=== PATIENT | female | born 1960 ===

== ENCOUNTER 2017-05-04 10:34 | Day surgery (SDC) | payer MEDICAID ==
[2017-05-04 10:49] VITALS: BMI 30.2
[2017-05-04] MEDS ORDERED: Lactated Ringer's 500 ML IV ONE (10:52)
[2017-05-04] MEDS ORDERED: Propofol 10 mg/ml Inj (20 ML) ONE (11:49)
[2017-05-04] MEDS ORDERED: Lidocaine 2% MPF (5 ml) Inj ONE (11:50)
[2017-05-04 12:09] VITALS: TEMP 96.8
[2017-05-04 12:14] VITALS: BP 117/58; PULSE 54; RESP 18; O2SAT 99
== END 2017-05-04 13:56 | disposition home or self-care (01) ==
LOC: H.ENDO 10:34
PROVIDERS: ATTEND Internal Medicine Gastroenterology
DX: R10.13 Epigastric pain (principal); J45.909 Unspecified asthma, uncomplicated; K31.9 Disease of stomach and duodenum, unspecified
CPT/HCPCS: 43239; 88305; J2704; J7120